=== PATIENT | male | born 1980 | race Hispanic/Latino ===

== ENCOUNTER 2017-03-06 11:30 | Emergency (ER) | payer OTHER ==
[~2017-03-06] VITALS: Ht 165.1 cm; Wt 81.6 kg
[2017-03-06] MEDS ORDERED: IBUPROFEN800 M1 PO (12:54)
[2017-03-06] MEDS ORDERED: PERCOCET 5-3251 EACH PO (12:54)
[2017-03-06] MEDS ORDERED: CLEOCIN HCL150 M1 PO (12:54)
--- NOTE | 2017-03-06 12:55 | ED THROAT/DENTAL COMPLAINT ---
History of Present Illness General Chief Complaint: Sore Throat, Dental Pain Stated Complaint: DENTAL PAIN Source: patient, old records Exam Limitations: no limitations Vital Signs & Intake/Output Vital Signs & Intake/Output Vital Signs Date Time Temp Pulse Resp B/P B/P Pulse O2 O2 Flow FiO2 Mean Ox Delivery Rate 03/06 1157 98.2 78 18 157/91 98 Room Air Room Air Allergies Coded Allergies: No Known Allergies (03/06/17) Reconcile Medications No Known Home Medications Triage Note: TRIAGE: 37 Y/O MALE PRESENTS C/O LEFT UPPER AND LOWER BACK TOOTH PAIN SINCE LAST NIGHT. TOOK TYLENOL, IBUPROFEN WITHOUT RELIEF. Triage Nurses Notes Reviewed? yes Onset: Evening Duration: hour(s):, constant, continues in ED Timing: recent history Severity: severe Modifying Factors: Improves With: cold therapy. HPI: 1 day prior to admission patient developed severe sharp left upper and lower 3rd molar constant pain radiating to his denominational not improved with Tylenol or Motrin. He denies fever chills nausea vomiting diarrhea abdominal pain chest pain shortness breath headache dysuria rash bleeding. Reports having a dental appointment on Wednesday. Past History Travel History Traveled to [place] past 21 day No Medical History Any Pertinent Medical History? see below for history Respiratory: asthma Endocrine: diabetes Surgical History Surgical History: non-contributory Psychosocial History What is your primary language Nigerien Tobacco Use: Current Daily Use Daily Tobacco Use Amount/Type: => 5 Cigarettes daily ETOH Use: occasional use Illicit Drug Use: denies illicit drug use Family History Hx Contributory? No Review of Systems Review of Systems Constitutional: Reports: no symptoms. EENTM: Reports: see HPI, tooth pain. Respiratory: Reports: no symptoms. Cardiovascular: Reports: no symptoms. GI: Reports: no symptoms. Genitourinary: Reports: no symptoms. Musculoskeletal: Reports: no symptoms. Skin: Reports: no symptoms. Neurological/Psychological: Reports: no symptoms. Hematologic/Endocrine: Reports: no symptoms. Immunologic/Allergic: Reports: no symptoms. All Other Systems: Reviewed and Negative Physical Exam Physical Exam General Appearance: well developed/nourished, alert, awake, anxious, moderate distress Head: atraumatic, normal appearance Eyes: Bilateral: normal appearance, PERRL, EOMI. Ears: Bilateral: canal normal, Tympanic normal. Nose: normal inspection Mouth/Throat: dental tenderness (18,19) Neck: normal inspection, supple, full range of motion, trachea midline Cardiovascular/Respiratory: normal breath sounds, normal peripheral pulses, regular rate/rhythm, no respiratory distress Back: normal inspection, normal range of motion Neurologic/Psych: no motor/sensory deficits, awake, alert, oriented x 3, normal gait, normal mood/affect Skin: intact, normal color, warm/dry Core Measures ACS in differential dx? No Severe Sepsis Present: No Septic Shock Present: No Progress Differential Diagnosis: carious tooth, odontogenic abscess Plan of Care: Current Medications Sig/Maya Start time Last Medication Dose Stop Time Status Admin Clindamycin 150 MG ONCE ONE 03/06 1300 UNVr (Cleocin 150MG Cap) 03/06 1301 Ibuprofen 800 MG ONCE ONE 03/06 1300 UNVr (Motrin) 03/06 1301 Tramadol HCl 50 MG ONCE ONE 03/06 1300 UNVr (Ultram) 03/06 1301 antibiotic analgesia (GORDON OSWALD MD) Departure Departure Time of Disposition: 1251 Disposition: HOME OR SELF CARE Condition: Stable Clinical Impression Primary Impression: Dental caries Referrals: PATIENT HAS NO PRIMARY CARE DR (PCP/Family) Departure Forms: Customer Survey General Discharge Information Prescriptions: Current Visit Scripts Clindamycin HCl (Cleocin HCl) 1 CAP PO TID #21 CAP Ibuprofen 1 TAB PO Q6PRN PRN pain #50 TAB Oxycodone HCl/Acetaminophen (Percocet 5-325 MG Tablet) 1-2 TAB PO 4 TIMES/DAY PRN severe pain #20 TAB
== END 2017-03-06 13:45 ==
LOC: ERH 11:30
DX: K02.9 Dental caries, unspecified (principal)